=== PATIENT | female | born 1990 | race Caucasian/White ===

== ENCOUNTER → 2020-11-25 | Outpatient (CLI) | payer OTHER | END | disposition home or self-care (01) | LOC: LABWHC1 14:00 | PROVIDERS: ATTEND Family Medicine | DX: U07.1 COVID-19 (principal) | CPT/HCPCS: U0003; U0005 ==

== ENCOUNTER 2020-11-28 13:12 | Emergency (ER) | payer OTHER ==
[2020-11-28 14:43] VITALS: RESP 18
--- NOTE | 2020-11-28 14:45 | ED ---
URI HPI - General Source: patient, RN notes reviewed Mode of arrival: ambulatory Limitations: no limitations <Phani Flores - Last Filed: 11/28/20 16:04> <Hannah Lira - Last Filed: 11/29/20 00:40> - General Chief Complaint: Upper Respiratory Infection Stated Complaint: Difficulty Breathing Time Seen by Provider: 11/28/20 14:00 - History of Present Illness Initial Comments: 30-year-old female presents emergency from chief complaint of cough congestion fever. Patient states symptoms started last weekend. Patient was seen by PCP and diagnosed with asthmatic bronchitis. Patient states that she was given azithromycin, steroid pack, Flonase with no relief of symptoms. Patient states she feels worse. Patient denies any recent sick contacts. She states she tested negative for Covid 19 at that time. (Phani Flores) - Related Data Allergies Allergy/AdvReac Type Severity Reaction Status Date / Time lithium Allergy Rash/Hives Verified 11/28/20 14:43 Review of Systems ROS Other: All systems not noted in ROS Statement are negative. <Phani Flores - Last Filed: 11/28/20 16:04> ROS Other: All systems not noted in ROS Statement are negative. <Hannah Lira - Last Filed: 11/29/20 00:40> ROS Statement: Those systems with pertinent positive or pertinent negative responses have been documented in the HPI. Past Medical History Past Medical History: Asthma History of Any Multi-Drug Resistant Organisms: None Reported Past Surgical History: Section, Cholecystectomy Past Psychological History: No Psychological Hx Reported Smoking Status: Former smoker Past Alcohol Use History: None Reported Past Drug Use History: None Reported <Phani Flores - Last Filed: 11/28/20 16:04> General Exam Limitations: no limitations General appearance: alert, in no apparent distress Head exam: Present: atraumatic, normocephalic, normal inspection Eye exam: Present: normal appearance, PERRL, EOMI. Absent: scleral icterus, conjunctival injection, periorbital swelling ENT exam: Present: normal exam, normal oropharynx, mucous membranes moist Neck exam: Present: normal inspection, full ROM. Absent: tenderness, meningismus, lymphadenopathy Respiratory exam: Present: normal lung sounds bilaterally. Absent: respiratory distress, wheezes, rales, rhonchi, stridor Cardiovascular Exam: Present: normal rhythm, tachycardia, normal heart sounds. Absent: systolic murmur, diastolic murmur, rubs, gallop, clicks <Phani Flores - Last Filed: 11/28/20 16:04> Course Vital Signs 11/28/20 11/28/20 11/28/20 14:40 16:30 16:57 Temperature 99.9 F H 98.8 F Pulse Rate 107 H 86 Respiratory 18 18 18 Rate Blood Pressure 117/71 104/67 O2 Sat by Pulse 96 94 L Oximetry 11/28/20 18:06 Temperature 98.8 F Pulse Rate 82 Respiratory 18 Rate Blood Pressure 101/66 O2 Sat by Pulse 95 Oximetry Medical Decision Making <Hannah Lira - Last Filed: 11/29/20 00:40> - Medical Decision Making I was available for consultation in the emergency department. The history and physical exam were done by the midlevel provider. I was consulted for this patients care. I reviewed the case with the midlevel provider and based on their presentation of the patient, I agree with the assessment, medical decision making and plan of care as documented. Chart was dictated using [employer] dictation software. Attempts were made to correct any dictation errors however some typographical errors may persist. (Hannah Lira) - Lab Data Lab Results 11/28/20 Range/Units 14:46 Coronavirus (PCR) Detected A (Not Detectd) Disposition Is patient prescribed a controlled substance at d/c from ED?: No Time of Disposition: 16:04 <Phani Flores - Last Filed: 11/28/20 16:04> <Hannah Lira - Last Filed: 11/29/20 00:40> Clinical Impression: COVID-19 Disposition: HOME SELF-CARE Condition: Stable Instructions (If sedation given, give patient instructions): Coronavirus Disease 2019 (COVID-19) Additional Instructions: Please return to the Emergency Department if symptoms worsen or any other concerns. Referrals: Apolinar Polanco MD [Primary Care Provider] - 1-2 days
--- NOTE | 2020-11-28 15:33 | XR ---
EXAMINATION TYPE: XR chest 2V DATE OF EXAM: 11/28/2020 COMPARISON: NONE HISTORY: Cough and congestion TECHNIQUE: 2 views FINDINGS: Heart is normal. There is some coarse interstitial density in the mid and lower lung dumont . There is poor inspiration. There is no heart failure. Bony thorax is intact. IMPRESSION: Interstitial mild infiltrate and subsegmental atelectasis at the lung bases. Normal heart .
[2020-11-28] MEDS ORDERED: ONDANSETRON 4 MG/2 ML VIAL IVP STA (15:49)
[2020-11-28] MEDS ORDERED: KETOROLAC 15 MG/ML 1 ML VIAL IVP STA (15:49)
[2020-11-28] MEDS ORDERED: SODIUM CHLORIDE 0.9% 2,000 ML IV ONE (15:49)
[2020-11-28] MEDS ORDERED: CASIRIVIMAB (REGN10933) (EUA) 600 MG, IMDEVIMAB (REGN10987) (EUA) 600 MG in SODIUM CHLO... IVPB ONE (16:15)
[2020-11-28] MEDS ORDERED: SODIUM CHLORIDE 0.9% 50 ML IVPB ONE (16:15)
[2020-11-28 17:01] VITALS: TEMP 98.8
[2020-11-28 18:07] VITALS: BP 101/66; PULSE 82
== END 2020-11-28 18:07 | disposition home or self-care (01) ==
LOC: EC 13:12
DX: U07.1 COVID-19 (principal); J45.909 Unspecified asthma, uncomplicated; Z90.49 Acquired absence of other specified parts of digestive tract; Z87.891 Personal history of nicotine dependence
CPT/HCPCS: 99283 ×2; 96365; 96375 ×3; 96361 ×2; 87635; 71046; M0243; J2405; J1885; Q0243

== ENCOUNTER → 2020-12-06 | Outpatient (CLI) | payer OTHER | END | disposition home or self-care (01) | LOC: LABWHC1 12:49 | PROVIDERS: ATTEND Family Medicine | DX: Z20.822 Contact with and (suspected) exposure to COVID-19 (principal) | CPT/HCPCS: U0003; U0005 ==

== ENCOUNTER 2021-06-01 08:08 | Emergency (ER) | payer OTHER ==
[2021-06-01 08:21] VITALS: BP 118/84; PULSE 90; RESP 18; TEMP 98.2
--- NOTE | 2021-06-01 08:37 | ED ---
General Adult HPI - General Chief complaint: Nausea/Vomiting/Diarrhea Stated complaint: nausea, no appetite Time Seen by Provider: 06/01/21 08:23 Source: patient, RN notes reviewed, old records reviewed Mode of arrival: ambulatory Limitations: no limitations - History of Present Illness Initial comments: 31-year-old female presenting for evaluation of nausea vomiting and diarrhea. Symptoms began about 3 days ago. She's had some fatigue and subjective fever and chills. She states that several of her coworkers have similar gastrointestinal illness. Patient states that the vomiting most recently occurred about 48 hours ago. She states overall she is getting better. No upper respiratory symptoms. - Related Data Allergies Allergy/AdvReac Type Severity Reaction Status Date / Time lithium Allergy Rash/Hives Verified 06/01/21 08:22 Review of Systems ROS Statement: Those systems with pertinent positive or pertinent negative responses have been documented in the HPI. ROS Other: All systems not noted in ROS Statement are negative. Past Medical History Past Medical History: Asthma History of Any Multi-Drug Resistant Organisms: None Reported Past Surgical History: Section, Cholecystectomy Past Psychological History: No Psychological Hx Reported Smoking Status: Former smoker Past Alcohol Use History: None Reported Past Drug Use History: None Reported General Exam Limitations: no limitations General appearance: alert, in no apparent distress Head exam: Present: atraumatic, normocephalic Eye exam: Present: normal appearance ENT exam: Present: normal exam, normal oropharynx, mucous membranes moist Neck exam: Present: normal inspection. Absent: tenderness, meningismus Respiratory exam: Present: normal lung sounds bilaterally. Absent: respiratory distress, wheezes Cardiovascular Exam: Present: regular rate, normal rhythm GI/Abdominal exam: Present: soft. Absent: distended, tenderness, guarding, rebound Extremities exam: Present: normal inspection, normal capillary refill Neurological exam: Present: alert, oriented X3, CN II-XII intact. Absent: motor sensory deficit Psychiatric exam: Present: normal affect, normal mood Skin exam: Present: warm, dry, intact. Absent: cyanosis, diaphoretic Course Vital Signs 06/01/21 08:19 Temperature 98.2 F Pulse Rate 90 Respiratory 18 Rate Blood Pressure 118/84 O2 Sat by Pulse 94 L Oximetry Medical Decision Making - Medical Decision Making 31-year-old female presenting for evaluation of gastrointestinal illness which is improving. Patient required clearance for her employer. She has not had any vomiting in the past 48 hours. She is afebrile with stable vitals. She appears hydrated. She is given return parameters to work on June 02. She will return to the emergency department with any worsening or changing symptoms or new concerns. Disposition Clinical Impression: Vomiting and diarrhea Disposition: HOME SELF-CARE Instructions (If sedation given, give patient instructions): Acute Nausea and Vomiting (ED), Acute Diarrhea (ED) Is patient prescribed a controlled substance at d/c from ED?: No Referrals: Apolinar Polanco MD [Primary Care Provider] - 1-2 days Time of Disposition: 08:37
== END 2021-06-01 08:45 | disposition home or self-care (01) ==
LOC: EC 08:08
DX: R11.2 Nausea with vomiting, unspecified (principal); R19.7 Diarrhea, unspecified; J45.909 Unspecified asthma, uncomplicated; Z90.49 Acquired absence of other specified parts of digestive tract; Z87.891 Personal history of nicotine dependence
CPT/HCPCS: 99283

== ENCOUNTER 2021-06-14 05:37 | Emergency (ER) | payer OTHER ==
--- NOTE | 2021-06-14 06:11 | XR ---
EXAMINATION TYPE: XR chest 2V DATE OF EXAM: 06/14/2021 COMPARISON: Chest x-ray November 28, 2020 HISTORY: Difficulty in breathing. TECHNIQUE: Frontal and lateral views of the chest are obtained. FINDINGS: Low lung volumes redemonstrated. Left hilar and patchy left basilar opacity is again seen. No pleural effusion or pneumothorax noted bilaterally. The cardiac silhouette size is stable and wi thin normal limits. Slight underlying scoliotic curvature. Cholecystectomy clips. IMPRESSION: Low lung volumes with patchy left perihilar and basilar acute infiltrate and/or atelecta sis.
[2021-06-14 06:36] VITALS: BP 127/72; PULSE 99; TEMP 97.4
--- NOTE | 2021-06-14 07:37 | ED ---
General Adult HPI - General Chief complaint: Upper Respiratory Infection Stated complaint: ABIMAEL Time Seen by Provider: 06/14/21 07:25 Source: patient, RN notes reviewed Limitations: no limitations - History of Present Illness Initial comments: So [id number] female presents emergency Department chief complaint of cough congestion shortness breath. Patient does have underlying asthma. Patient states that she has increasing nasal congestion. Patient states that her asthma has been bothering her. Patient states that she's had fusion chills at home. Patient denies any chest pain no back pain denies any known sick contacts. Patient states that she has not tried any [id number] cough and cold medications. She states she only has an ALLERGY to lithium no antibiotic ALLERGIES. Patient offers no complaints. - Related Data Previous Rx's Medication Instructions Recorded Azithromycin [Zithromax Z-pack (6 0 mg PO DIRECTED #1 packet 06/14/21 tabs)] predniSONE 50 mg PO DAILY #5 tab 06/14/21 Allergies Allergy/AdvReac Type Severity Reaction Status Date / Time lithium Allergy Rash/Hives Verified 06/14/21 05:45 Review of Systems ROS Statement: Those systems with pertinent positive or pertinent negative responses have been documented in the HPI. ROS Other: All systems not noted in ROS Statement are negative. Past Medical History Past Medical History: Asthma History of Any Multi-Drug Resistant Organisms: None Reported Past Surgical History: Section, Cholecystectomy Past Psychological History: No Psychological Hx Reported Smoking Status: Former smoker Past Alcohol Use History: None Reported Past Drug Use History: None Reported General Exam Limitations: no limitations General appearance: alert, in no apparent distress Head exam: Present: atraumatic, normocephalic, normal inspection Eye exam: Present: normal appearance, PERRL, EOMI. Absent: scleral icterus, conjunctival injection, periorbital swelling ENT exam: Present: mucous membranes moist, TM's normal bilaterally, normal external ear exam. Absent: normal oropharynx (Postnasal drainage) Neck exam: Present: normal inspection, full ROM. Absent: tenderness, meningismus, lymphadenopathy Respiratory exam: Present: wheezes, rhonchi. Absent: normal lung sounds bilaterally, respiratory distress, rales, stridor Cardiovascular Exam: Present: regular rate, normal rhythm, normal heart sounds. Absent: systolic murmur, diastolic murmur, rubs, gallop, clicks GI/Abdominal exam: Present: soft, normal bowel sounds. Absent: distended, tenderness, guarding, rebound, rigid Course Vital Signs 06/14/21 06/14/21 05:38 06:35 Temperature 97.7 F 97.4 F L Pulse Rate 103 H 99 Respiratory 20 16 Rate Blood Pressure 115/81 127/72 O2 Sat by Pulse 97 100 Oximetry Medical Decision Making - Medical Decision Making Chest x-ray shows evidence of that she infiltrates. Patient will be started on oral antibiotics. Patient we given steroids for her underlying Asthma she has noted bronchospasm. Patient will have close follow-up return parameters were discussed. - Lab Data Lab Results 06/14/21 Range/Units 06:33 Coronavirus (PCR) Not Detected (Not Detectd) Disposition Clinical Impression: Asthma, Pneumonia Disposition: HOME SELF-CARE Condition: Stable Instructions (If sedation given, give patient instructions): Asthma (ED) Additional Instructions: Please return to the Emergency Department if symptoms worsen or any other concerns. Prescriptions: predniSONE 50 mg PO DAILY #5 tab Azithromycin [Zithromax Z-pack (6 tabs)] 0 mg PO DIRECTED #1 packet Is patient prescribed a controlled substance at d/c from ED?: No Referrals: Apolinar Polanco MD [Primary Care Provider] - 1-2 days Time of Disposition: 07:37
[2021-06-14 07:44] VITALS: RESP 20
== END 2021-06-14 07:40 | disposition home or self-care (01) ==
LOC: EC 05:37
DX: J45.909 Unspecified asthma, uncomplicated (principal); J18.9 Pneumonia, unspecified organism; Z87.891 Personal history of nicotine dependence; Z20.822 Contact with and (suspected) exposure to COVID-19
CPT/HCPCS: 71046; 87635; 99285

== ENCOUNTER 2022-01-28 12:20 | Emergency (ER) | payer MEDICAID, OTHER ==
[2022-01-28 12:36] VITALS: PULSE 111; RESP 18; TEMP 99.9
[2022-01-28] MEDS ORDERED: dexAMETHasone 4 MG TAB PO STA (12:46)
[2022-01-28] MEDS ORDERED: IBUPROFEN 800 MG TAB PO STA (12:46)
--- NOTE | 2022-01-28 12:52 | ED ---
General Adult HPI - General Chief complaint: Upper Respiratory Infection Stated complaint: sore throat, fever Time Seen by Provider: 01/28/22 12:38 Source: patient, RN notes reviewed, old records reviewed Mode of arrival: ambulatory Limitations: no limitations - History of Present Illness Initial comments: Patient is a 31-year-old female with past medical history remarkable for mild sports induced asthma but has never required admission, auscultation, intubation presents emergency Department with a 2 day history of upper esterase symptoms. States it started with a sore throat on . Into her primary care office for the sore throat and they did not see testing and she was discharged home. She states that since then yesterday, she has been having upper respiratory congestion, nonproductive cough, chest congestion, sore throat. Low-grade fevers at home as well. Some mild body aches. Is concerned she may have an upper a superinfection at this time. Denies any known sick contacts. Denies any other acute complaints including nausea, vomiting, diarrhea. Denies any rashes. Presents for further evaluation at this time. She was not vaccinated for Covid or flu. - Related Data Previous Rx's Medication Instructions Recorded Azithromycin [Zithromax Z-pack (6 0 mg PO DIRECTED #1 packet 06/14/21 tabs)] predniSONE 50 mg PO DAILY #5 tab 06/14/21 dexAMETHasone [Decadron] 4 mg PO DAILY 3 Days #3 tab 01/28/22 Allergies Allergy/AdvReac Type Severity Reaction Status Date / Time lithium Allergy Rash/Hives Verified 01/28/22 12:34 Review of Systems ROS Statement: Those systems with pertinent positive or pertinent negative responses have been documented in the HPI. Review of Systems: CONST: Endorses low-grade fever. EYES: Denies blurry vision ENT: Endorses nasal congestion C/V: Denies Chest pain RESP: Denies shortness of breath GI: Denies abdominal pain : Denies dysuria SKIN: Denies rash. MSK: Denies joint pain. NEURO: Denies headache ROS Other: All systems not noted in ROS Statement are negative. Past Medical History Past Medical History: Asthma History of Any Multi-Drug Resistant Organisms: None Reported Past Surgical History: Section, Cholecystectomy Past Psychological History: No Psychological Hx Reported Smoking Status: Former smoker Past Alcohol Use History: None Reported Past Drug Use History: None Reported General Exam - General Exam Comments Initial Comments: General: Appears in no acute distress. HEAD: Normal with no signs of head trauma. EYES: EOMI. Conjunctiva normal. ENT: Hearing grossly intact. Erythematous posterior oropharynx. No obvious exudates. Bilateral TMs within normal limits. RESPIRATORY: Clear breath sounds bilaterally. No wheezes, rales, or rhonchi. No respiratory distress. No hypoxia. C/V: Mild tachycardia.. S1 and S2 auscultated, peripheral pulses 2+ and intact throughout ABD: Abd is soft, nontender, nondistended EXT: No obvious deformity. SKIN: No rashes or lesions observed on exposed skin. NEURO: Alert and oriented 4. Limitations: no limitations Course Vital Signs 01/28/22 12:34 Temperature 99.9 F H Pulse Rate 111 H Respiratory 18 Rate O2 Sat by Pulse 97 Oximetry Medical Decision Making - Medical Decision Making Based on the patient's presentation and physical exam, I'm concerned for upper respiratory infection for the patient. It started with a sore throat which currently is erythematous. I did offer her viral swab, strep throat swab which she accepted. We will also obtain a chest x-ray. She has very mild asthma, and is currently not an acute exacerbation. We'll provide her with symptomatic treatment with a steroid dose as well as Motrin for low-grade fever. She was in agreement this plan. Vital signs within acceptable limits. Patient's strep throat swab is negative. Patient is positive for Covid, negative for RSV and influenza. Chest x-ray as interpreted by myself reveals no evidence of acute cardiac primary process, no infiltrate. On reevaluation, I did discuss the results of the patient. She exposed understanding that she is COVID-19. She is not hypoxic and is not in respiratory distress. Discussed obtaining a pulse oximeter. I did offer her Remdesivir which she accepted. She has no drug interactions. No history of kidney disease. Also provide her with a prescription for 3 additional days of steroid. She was in agreement with this plan. We discussed quarantine until at least a 5 which would be returning to work next Sunday at the earliest. She also needs to be 24 hours fever free. She expressed understanding. Discussed strict return precautions. She'll be discharged home at this time. I will provide the patient with a prescription for decadron, remdesivir. I instructed the patient to follow up with their PCP in the next 1-3 days. I explained that the patient should return to the emergency department if they experience any worsening symptoms. Strict return precautions were discussed with the patient. The patient expressed understanding of these instructions. I answered all questions that the patient had. The patient was discharged home in good condition with their prescriptions and follow up information. - Lab Data Lab Results 01/28/22 01/28/22 Range/Units 13:15 13:50 Influenza Type A (PCR) Not Detected (Not Detectd) Influenza Type B (PCR) Not Detected (Not Detectd) RSV (PCR) Not Detected (Not Detectd) SARS-CoV-2 (PCR) Detected A (Not Detectd) Group A Strep (PCR) NOT DETECTED (Not Detectd) Disposition Clinical Impression: COVID-19 virus infection Disposition: HOME SELF-CARE Condition: Good Instructions (If sedation given, give patient instructions): COVID-19 (Coronavirus Disease 2019) (ED) Prescriptions: dexAMETHasone [Decadron] 4 mg PO DAILY 3 Days #3 tab Is patient prescribed a controlled substance at d/c from ED?: No Referrals: Apolinar Polanco MD [Primary Care Provider] - 1-2 days Time of Disposition: 14:55
--- NOTE | 2022-01-28 13:28 | XR ---
EXAMINATION TYPE: XR chest 2V DATE OF EXAM: 01/28/2022 COMPARISON: 06/14/2021 HISTORY: Chest pain TECHNIQUE: Frontal and lateral views of the chest are obtained. FINDINGS: There is no focal air space opacity. No evidence for pneumothorax. No pleural effusion. The cardiac silhouette size is within normal limits. The osseous structures are grossly intact. IMPRESSION: 1. No acute cardiopulmonary process.
== END 2022-01-28 15:12 | disposition home or self-care (01) ==
LOC: EC 12:20
DX: U07.1 COVID-19 (principal); J45.909 Unspecified asthma, uncomplicated; Z87.891 Personal history of nicotine dependence; Z88.8 Allergy status to other drugs, medicaments and biological substances
CPT/HCPCS: 87651; 87636; 71046; 99283; J8540

== ENCOUNTER 2023-09-19 20:15 | Emergency (ER) | payer OTHER ==
[2023-09-19] MEDS: ACETAMINOPHEN TAB 500 MG TAB PO STA (20:55)
--- NOTE | 2023-09-19 22:03 | XR ---
EXAMINATION TYPE: XR foot complete RT DATE OF EXAM: 09/19/2023 9:13 PM CLINICAL INDICATION:Female, 33 years old with history of injury; [facility] COMPARISON: None. TECHNIQUE: XR foot complete RT examined in the AP, oblique, and lateral projections. FINDINGS: No fractures appreciated. There is mild soft tissue swelling present. IMPRESSION: No acute fractures. Mild generalized soft tissue swelling of the foot. If there is concern for ligame ntous injury consider MRI of the ankle/foot without IV contrast for further characterization.
--- NOTE | 2023-09-19 22:53 | ED ---
General Adult HPI - General Chief complaint: Extremity Injury, Lower Stated complaint: R foot injury, Time Seen by Provider: 09/19/23 20:20 Source: patient Mode of arrival: ambulatory Limitations: no limitations - History of Present Illness Initial comments: 33-year-old female presenting with chief complaint of right foot injury. Patient dropped a wooden pallet on her foot earlier today at work. She is having some swelling to the top of the foot. She is able to ambulate and weight-bear without difficulty. States that she wanted to come in and be ev aluated just in case. No numbness or tingling. She has full range of motion. - Related Data Previous Rx's Medication Instructions Recorded Azithromycin [Zithromax Z-pack (6 0 mg PO DIRECTED #1 packet 06/14/21 tabs)] predniSONE 50 mg PO DAILY #5 tab 06/14/21 dexAMETHasone [Decadron] 4 mg PO DAILY 3 Days #3 tab 01/28/22 Allergies Allergy/AdvReac Type Severity Reaction Status Date / Time lithium Allergy Rash/Hives Verified 09/19/23 20:18 Review of Systems ROS Statement: Those systems with pertinent positive or pertinent negative responses have been documented in the HPI. ROS Other: All systems not noted in ROS Statement are negative. Past Medical History Past Medical History: Asthma History of Any Multi-Drug Resistant Organisms: None Reported Past Surgical History: Section, Cholecystectomy Past Psychological History: No Psychological Hx Reported Smoking Status: Former smoker Past Alcohol Use History: None Reported Past Drug Use History: None Reported General Exam Limitations: no limitations General appearance: alert, in no apparent distress Head exam: Present: atraumatic, normocephalic Eye exam: Present: normal appearance. Absent: EOMI Neck exam: Present: normal inspection. Absent: meningismus Respiratory exam: Absent: respiratory distress Right Foot/Toe exam: Present: full ROM, tenderness, swelling Neurovascular tendon exam: Present: no vascular compromise Neurological exam: Present: alert, oriented X3 Psychiatric exam: Present: normal affect, normal mood Skin exam: Present: intact, normal color Course Vital Signs 09/19/23 09/19/23 20:17 23:12 Temperature 98.6 F 98.2 F Pulse Rate 110 H 82 Respiratory 20 18 Rate Blood Pressure 118/83 121/82 O2 Sat by Pulse 97 98 Oximetry Medical Decision Making - Medical Decision Making Was pt. sent in by a medical professional or institution ([facility], [facility], urgent care, hospital, or detention...) When possible be specific @ -No Did you speak to anyone other than the patient for history (EMS, parent, family, police, friend...)? What history was obtained from this source @ -No Did you review nursing and triage notes (agree or disagree)? Why? @ -I reviewed and agree with nursing and triage notes Were old charts reviewed (outside hosp., previous admission, EMS record, old EKG, old radiological studies, urgent care reports/EKG's, detention records)? Report findings @ -No old charts were reviewed Differential Diagnosis (chest pain, altered mental status, abdominal pain women, abdominal pain men, vaginal bleeding, weakness, fever, dyspnea, syncope, headache, dizziness, GI bleed, back pain, seizure, CVA, palpatations, mental health, musculoskeletal)? @ -Differential Musculoskeletal Muscular strain, contusion, ligament sprain, fracture, arthritis, septic arthritis, bursitis, cellulitis, muscle spasm, nerve compression, DVT, arterial occlusion, herpes zoster, electrolyte abnormality, tumor.... This is not meant to be in all inclusive list EKG interpreted by me (3pts min.). @ -As above X-rays interpreted by me (1pt min.). @ -X-ray shows no acute fractures. Mild generalized soft tissue swelling of the foot. CT interpreted by me (1pt min.). @ -None done U/S interpreted by me (1pt. min.). @ -None done What testing was considered but not performed or refused? (CT, X-rays, U/S, labs)? Why? @ -None What meds were considered but not given or refused? Why? @ -None Did you discuss the management of the patient with other professionals (professionals i.e. [facility], [facility], lab, RT, psych nurse, social service worker, manager background, teacher, licensing officer, case finishing machine adjuster)? Give summary @ -No Was smoking cessation discussed for >3mins.? @ -No Was critical care preformed (if so, how long)? @ -No Were there social determinants of health that impacted care today? How? (Homelessness, low income, unemployed, alcoholism, drug addiction, transportation, low edu. Level, literacy, decrease access to med. care, nursing home, rehab)? @ -No Was there de-escalation of care discussed even if they declined (Discuss DNR or withdrawal of care, Hospice)? DNR status @ -No What co-morbidities impacted this encounter? (DM, HTN, Smoking, COPD, CAD, Cancer, CVA, ARF, Chemo, Hep., AIDS, mental health diagnosis, sleep apnea, morbid obesity)? @ -None Was patient admitted / discharged? Hospital course, mention meds given and route, prescriptions, significant lab abnormalities, going to OR and other pertinent info. @ -33-year-old female presenting for evaluation after foot injury. X-ray negative for fracture or dislocation. Educated on today's findings and supportive management. Discharged home. Follow-up with PCP. Report back to ER with any new or worsening symptoms. Discussed return parameters and answered all questions. Patient conveyed verbal understanding and agreed to the plan. I discussed this case in detail with my attending Dr. Hancock Undiagnosed new problem with uncertain prognosis? @ -No Drug Therapy requiring intensive monitoring for toxicity (Heparin, Nitro, Insulin, Cardizem)? @ -No Were any procedures done? @ -No Diagnosis/symptom? @ -Foot sprain Acute, or Chronic, or Acute on Chronic? @ -Acute Uncomplicated (without systemic symptoms) or Complicated (systemic symptoms)? @ -Uncomplicated Side effects of treatment? @ -No Exacerbation, Progression, or Severe Exacerbation? @ -No Poses a threat to life or bodily function? How? (Chest pain, USA, [place], pneumonia, PE, COPD, DKA, ARF, appy, cholecystitis, CVA, Diverticulitis, Homicidal, Suicidal, threat to staff... and all critical care pts) @ -No Disposition Clinical Impression: Foot sprain Disposition: HOME SELF-CARE Condition: Good Instructions (If sedation given, give patient instructions): Foot Sprain (ED) Additional Instructions: Follow up with PCP. Report back to ER with any new or worsening symptoms Is patient prescribed a controlled substance at d/c from ED?: No Referrals: Apolinar Polanco MD [Primary Care Provider] - 1-2 days Time of Disposition: 22:53
[2023-09-19 23:14] VITALS: BP 121/82; PULSE 82; RESP 18; TEMP 98.2
== END 2023-09-19 23:13 | disposition home or self-care (01) ==
LOC: EC 20:15
DX: S93.601A Unspecified sprain of right foot, initial encounter (principal); Z91.048 Other nonmedicinal substance allergy status; Z87.891 Personal history of nicotine dependence; W20.8XXA Other cause of strike by thrown, projected or falling object, initial encounter
CPT/HCPCS: 99283

== ENCOUNTER 2024-05-11 11:24 | Emergency (ER) | payer OTHER ==
--- NOTE | 2024-05-11 12:55 | ED ---
URI HPI - General Source: patient, RN notes reviewed Mode of arrival: ambulatory Limitations: no limitations <Annamaria Person - Last Filed: 05/11/24 12:54> - General Source: patient, RN notes reviewed Mode of arrival: ambulatory Limitations: no limitations <Michelle Helm - Last Filed: 05/11/24 16:47> - General Chief Complaint: Upper Respiratory Infection Stated Complaint: SOB Time Seen by Provider: 05/11/24 12:54 - History of Present Illness Initial Comments: Quick [id number] female with history of asthma presenting for cough x 3 days. Patient reports nasal congestion and productive cough with thick yellow phlegm. States she is having pain in her lungs when she coughs. (Annamaria Person) 34-year-old female presented the ER for evaluation of a sore throat and cough. On , patient started to endorse a sore throat and cough. She states today she was coughing and having a productive yellow phlegm. Patient does report a history of asthma and states she has been using inhaler and Vicks nasal spray for symptom control outpatient without relief. She also has used DayQuil and NyQuil. She reports her lungs feel "sore" from coughing. She denies any chest pain, shortness of breath or difficulty breathing. Denies fevers, nausea, vomiting, abdominal pain, constipation/diarrhea, urinary complaints. No other complaints at this time. Patient does report a coworker on had similar symptoms. (Michelle Helm) - Related Data Previous Rx's Medication Instructions Recorded Azithromycin [Zithromax Z-pack (6 0 mg PO DIRECTED #1 packet 06/14/21 tabs)] predniSONE 50 mg PO DAILY #5 tab 06/14/21 dexAMETHasone [Decadron] 4 mg PO DAILY 3 Days #3 tab 01/28/22 Allergies Allergy/AdvReac Type Severity Reaction Status Date / Time lithium Allergy Rash/Hives Verified 05/11/24 11:53 Review of Systems ROS Other: All systems not noted in ROS Statement are negative. <Annamaria Person - Last Filed: 05/11/24 12:54> ROS Other: All systems not noted in ROS Statement are negative. <Michelle Helm - Last Filed: 05/11/24 16:47> ROS Statement: Those systems with pertinent positive or pertinent negative responses have been documented in the HPI. Past Medical History Past Medical History: Asthma History of Any Multi-Drug Resistant Organisms: None Reported Past Surgical History: Section, Cholecystectomy Past Psychological History: No Psychological Hx Reported Smoking Status: Former smoker Past Alcohol Use History: None Reported Past Drug Use History: None Reported <Annamaria Person - Last Filed: 05/11/24 12:54> General Exam Limitations: no limitations <Annamaria Person - Last Filed: 05/11/24 12:54> Limitations: no limitations General appearance: alert, in no apparent distress ENT exam: Present: normal exam, normal oropharynx (Mild erythema), mucous membranes moist, TM's normal bilaterally Neck exam: Present: normal inspection. Absent: tenderness, meningismus, lymphadenopathy Respiratory exam: Present: normal lung sounds bilaterally. Absent: respiratory distress, wheezes, rales, rhonchi, stridor Cardiovascular Exam: Present: regular rate, normal rhythm, normal heart sounds. Absent: systolic murmur, diastolic murmur, rubs, gallop, clicks Extremities exam: Present: normal inspection, full ROM, normal capillary refill. Absent: tenderness, pedal edema, joint swelling, calf tenderness Neurological exam: Present: alert, oriented X3, CN II-XII intact Skin exam: Present: warm, dry, intact, normal color. Absent: rash <Michelle Helm - Last Filed: 05/11/24 16:47> - General Exam Comments Initial Comments: Visual Physical Exam Vital signs reviewed General: Well-appearing, nontoxic, no acute distress. Head: Normocephalic, atraumatic Eyes: PERRLA, EOMI ENT: Airway patent Chest: Nonlabored breathing Skin: No visual rash, normal skin tone Neuro: Alert and oriented 3 Musculoskeletal: No gross abnormalities (Annamaria Person) Course Vital Signs 05/11/24 05/11/24 11:50 14:32 Temperature 98.3 F 98.6 F Pulse Rate 97 108 H Respiratory 20 18 Rate Blood Pressure 114/80 138/84 O2 Sat by Pulse 98 97 Oximetry Medical Decision Making <Annamaria Person - Last Filed: 05/11/24 12:54> - Radiology Data Radiology results: report reviewed, image reviewed <Michelle Helm - Last Filed: 05/11/24 16:47> - Medical Decision Making I completed the quick note portion of this chart signed Annamaria Person PA-C (Annamaria Person) Was pt. sent in by a medical professional or institution ([facility], [employer] SET UP OPERATOR, urgent care, hospital, or fci...) When possible be specific @ -No Did you speak to anyone other than the patient for history (EMS, parent, family, police, friend...)? What history was obtained from this source @ -No Did you review nursing and triage notes (agree or disagree)? Why? @ -I reviewed and agree with nursing and triage notes Were old charts reviewed (outside hosp., previous admission, EMS record, old EKG, old radiological studies, urgent care reports/EKG's, fci records)? Report findings @ -No old charts were reviewed Differential Diagnosis (chest pain, altered mental status, abdominal pain women, abdominal pain men, vaginal bleeding, weakness, fever, dyspnea, syncope, headache, dizziness, GI bleed, back pain, seizure, CVA, palpatations, mental health, musculoskeletal)? @ -COVID, RSV, influenza, viral sinusitis, pneumonia, strep pharyngitis, this list is not meant to be all-inclusive EKG interpreted by me (3pts min.). @ -None done X-rays interpreted by me (1pt min.). @ -CXR interpreted by me negative for focal consolidations, pneumothorax or pleural effusions.] CT interpreted by me (1pt min.). @ -None done U/S interpreted by me (1pt. min.). @ -None done What testing was considered but not performed or refused? (CT, X-rays, U/S, labs)? Why? @ -None What meds were considered but not given or refused? Why? @ -Patient refused ibuprofen or tylenol. Did you discuss the management of the patient with other professionals (professionals i.e. , [facility], GEAR HOBBER SET UP OPERATOR, lab, RT, psych nurse, social work supervisor, wood cut engraver, teacher, hospital security officer, case packer and sealer)? Give summary @ -No Was smoking cessation discussed for >3mins.? @ -No Was critical care preformed (if so, how long)? @ -No Were there social determinants of health that impacted care today? How? (Homelessness, low income, unemployed, alcoholism, drug addiction, transportation, low edu. Level, literacy, decrease access to med. care, fci, rehab)? @ -No Was there de-escalation of care discussed even if they declined (Discuss DNR or withdrawal of care, Hospice)? DNR status @ -No What co-morbidities impacted this encounter? (DM, HTN, Smoking, COPD, CAD, Cancer, CVA, ARF, Chemo, Hep., AIDS, mental health diagnosis, sleep apnea, morbid obesity)? @ -Asthma Was patient admitted / discharged? Hospital course, mention meds given and route, prescriptions, significant lab abnormalities, going to OR and other pertinent info. @ -Discharge. 34-year-old female presented the ER for evaluation of sore throat and cough. Vitals within acceptable limits. Patient in no signs of acute distress nontoxic-appearing. Patient is influenza A positive. Chest x- ray negative for acute process. Patient refused ibuprofen or Tylenol in the emergency department. Patient is stable for discharge with close outpatient follow-up upon reevaluation. Conservative treatment options discussed. Strict return parameters discussed. Advise close follow-up with PCP. Patient verbally expressed understanding agree with care plan. Case discussed with ED 10, Dr. Fournier. Undiagnosed new problem with uncertain prognosis? @ -No Drug Therapy requiring intensive monitoring for toxicity (Heparin, Nitro, Insulin, Cardizem)? @ -No Were any procedures done? @ -No Diagnosis/symptom? @ -Influenza A/acute viral sinusitis Acute, or Chronic, or Acute on Chronic? @ -Acute Uncomplicated (without systemic symptoms) or Complicated (systemic symptoms)? @ -Uncomplicated Side effects of treatment? @ -No Exacerbation, Progression, or Severe Exacerbation? @ -No Poses a threat to life or bodily function? How? (Chest pain, [place], [place], pneumonia, PE, COPD, DKA, ARF, appy, cholecystitis, CVA, Diverticulitis, Homicidal, Suicidal, threat to staff... and all critical care pts) @ -No (Michelle Helm) - Lab Data Lab Results 05/11/24 Range/Units 14:11 Influenza Type A (PCR) Detected A (Not Detectd) Influenza Type B (PCR) Not Detected (Not Detectd) RSV (PCR) Not Detected (Not Detectd) SARS-CoV-2 (PCR) Not Detected (Not Detectd) Disposition <Annamaria Person - Last Filed: 05/11/24 12:54> Is patient prescribed a controlled substance at d/c from ED?: No Time of Disposition: 15:03 <[email or web address] - Last Filed: 05/11/24 16:47> Clinical Impression: Influenza A, Acute viral sinusitis Disposition: HOME SELF-CARE Condition: Stable Instructions (If sedation given, give patient instructions): Influenza (ED) Additional Instructions: Alternate [id number] ibuprofen and Tylenol for symptom control outpatient. Follow-up with PCP. Return to the ER for any new or worsening concerns. Referrals: Apolinar Polanco MD [Primary Care Provider] - 1-2 days
--- NOTE | 2024-05-11 13:19 | XR ---
EXAMINATION TYPE: XR chest 2V DATE OF EXAM: 05/11/2024 CLINICAL INDICATION: Female, 34 years old with history of Cough, TECHNIQUE: Frontal and lateral views of the chest are obtained. COMPARISON: Chest x-ray January 28, 2022 FINDINGS: There is no focal air space opacity, pleural effusion, or pneumothorax seen. The cardiac silhouette size is stable and within normal limits. The osseous structures are intact. IMPRESSION: No acute pulmonary infiltrate. [facility], , 05/11/2024 1:16 PM
[2024-05-11 14:37] VITALS: BP 138/84; PULSE 108; RESP 18; TEMP 98.6
[2024-05-11 14:58] LABS: Influenza A Detected (Not Detectd); Influenza B Not Detected (Not Detectd); RSV Not Detected (Not Detectd)
== END 2024-05-11 15:23 | disposition home or self-care (01) ==
LOC: EC 11:24
DX: J01.90 Acute sinusitis, unspecified (principal); J10.1 Influenza due to other identified influenza virus with other respiratory manifestations; J45.909 Unspecified asthma, uncomplicated; Z87.891 Personal history of nicotine dependence; Z88.8 Allergy status to other drugs, medicaments and biological substances
CPT/HCPCS: 71046; 87636; 99285